=== PATIENT | male | born 1990 | race African-American/Black ===

== ENCOUNTER 2019-02-03 17:02 | Emergency (ER) | payer OTHER ==
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
[2019-02-03] MEDS ORDERED: HYDROCODONE/ACETAMINOPHEN 5-325 MG (6 TAB/ER DISP) PO PRN (17:42)
[2019-02-03] MEDS ORDERED: IBUPROFEN 800 MG TABLET PO ONE (17:43)
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
[2019-02-03 18:13] VITALS: BP 158/88
== END 2019-02-03 18:31 | disposition home or self-care (01) ==
LOC: ER 17:02
DX: S50.812A Abrasion of left forearm, initial encounter (principal); M25.522 Pain in left elbow; M79.641 Pain in right hand; V28.4XXA Motorcycle driver injured in noncollision transport accident in traffic accident, initial encounter
CPT/HCPCS: 99283